=== PATIENT | male | born 1990 | race Hispanic/Latino ===

== ENCOUNTER 2021-07-31 22:37 | Emergency (ER) | payer OTHER ==
[2021-07-31] MEDS ORDERED: Clindamycin 150 MG CAP ONE (23:04)
== END 2021-07-31 23:28 ==
LOC: BURERS 22:37
DX: L02.211 Cutaneous abscess of abdominal wall (principal); L03.311 Cellulitis of abdominal wall; F17.210 Nicotine dependence, cigarettes, uncomplicated
CPT/HCPCS: 10060